=== PATIENT | female | born 2000 | race African-American/Black ===

== ENCOUNTER 2020-01-18 12:38 | Emergency (ER) | payer OTHER ==
[~2020-01-18] VITALS: Ht 157.5 cm; Wt 57.6 kg
[2020-01-18 12:40] VITALS: BP 111/64
--- NOTE | 2020-01-18 13:05 | NUR ---
ED Nurse Note: Pt. AAOx4. ambulatory. Pt walked in from home c/o fatigue, sore throat, chills, dizziness, and poor PO intake since last night around 0200. Pt denies n/v/d.
[2020-01-18] MEDS ORDERED: Acetaminophen 500mg (ES) tab ORAL ONE (13:15)
[2020-01-18] MEDS ORDERED: dexAMETHasone 10mg/ml Inj IV ONE (13:15)
--- NOTE | 2020-01-18 13:17 | Emergency Room Report ---
History of Present Illness General Chief Complaint: Flu Like Symptoms Source: Patient (Jono Sánchez MD) Present Illness HPI Disclaimer: Please note that this report is being documented using [employer] technology. This can lead to erroneous entry secondary to incorrect interpretation by the dictating instrument. HPI: 19-year-old female presents for evaluation of sore throat, fever and fatigue. Symptoms began yesterday. She noted sweats and chills, right-sided throat pain, right-sided neck pain, difficulty swallowing, fatigue and generalized body aches. She is from [place] and is visiting the [facility] for 1 week. She has been in large crowds recently. She denies cough, shortness of breath, chest pain, congestion, vomiting, diarrhea, rash. No known sick contacts. History of tonsillitis. No recent antibiotic use. PMH: Recurrent tonsillitis PSH: Reviewed Allergies: Reviewed Social Hx: Reviewed (Jono Sánchez MD) Allergies: Coded Allergies: No Known Allergies (Unverified , 01/18/20) COVID-19 Screening Contact w/high risk pt: No Recent Travel to affected area: No Experienced COVID-19 symptoms?: Yes COVID-19 symptoms experienced: Fever (T>100.4F or >38C), Flu-Like Symptoms COVID-19 Testing performed SAFETY TEACHER: No (Jono Sánchez MD) Nursing Documentation-PMH Past Medical History: No Stated History (Jono Sánchez MD) Review of Systems All Other Systems: negative except mentioned in HPI (Jono Sánchez MD) Physical Exam Vital Signs Date Time Temp Pulse Resp B/P (MAP) Pulse Ox O2 Delivery O2 Flow Rate FiO2 01/18/20 12:40 101.5 115 20 111/64 (80) 93 Room Air General: Awake and alert, febrile HEENT: NC/AT. EOMI. uvula is midline. The right tonsil is erythematous, edematous with purulent exudate. There is tender submandibular lymph nodes on the right side. Left tonsil appears erythematous but no edema no exudate. No tenderness over the submandibular nodes on the left side. Cardiovascular: Tachycardic. S1 and S2 normal. No murmur appreciated Resp: Normal work of breathing. No cough, wheezing or crackles appreciated Skin: Intact. No abrasions, laceration or rash over the exposed skin MSK: Normal tone and bulk. Moving all extremities. No obvious deformity. Neuro: Awake and alert. Mentating appropriately. (Jono Sánchez MD) Medical Decision Making Diagnostic Impression: Primary Impression: Viral syndrome Additional Impression: COVID-19 ruled out Ruled Out: Pulmonary embolism ER Course This is a otherwise healthy 19-year-old female presenting for evaluation of sore throat, fever and generally feeling unwell for 1 day. Concern for tonsillitis and pharyngitis she is febrile and mildly tachycardic though no distress and denies any respiratory symptoms at this time. Also concern for COVID-19 given her recent travel and being in large crowds. Her Centor score is 4 and we will treat with amoxicillin, dexamethasone, Tylenol. Chest x-ray was obtained as she was originally noted to be hypoxic at 93% on room air on initial triage. She remained tachycardic after receiving antibiotics, steroids and medications. Rapid COVID-19 test has returned negative. Concern for PE given her recent travel, hypoxia and tachycardia. Will obtain EKG, screening labs and sent for CTA of the chest. Patient will be signed out to oncoming provider pending these results and ultimate disposition. (Jono Sánchez MD) ER Course Please see above note. Patient signed out to me to review laboratory tests as well as CT angiogram. See results below. Patient improved with treatment here. COVID-19 19 rapid test negative. Leukocytosis. Some pyuria but contaminated specimen. Patient denies dysuria. Symptoms more centering around upper respiratory etiology. CTA excludes pulmonary embolus. Exact cause of low oxygen saturation unclear however no medical emergency apparent at this time. Patient cleared to fly home tomorrow. Discussed treatment plan and the importance of following up with her own physician. Patient stable for outpatient observation and treatment. Laboratory Tests Test 01/18/20 16:05 White Blood Count 16.7 K/UL (4.8-10.8) H Red Blood Count 4.23 M/UL (4.20-5.40) Hemoglobin 10.8 G/DL (12.0-16.0) L Hematocrit 34.7 % (37.0-47.0) L Mean Corpuscular Volume 82 FL (80-99) Mean Corpuscular Hemoglobin 25.6 PG (27.0-31.0) L Mean Corpuscular Hemoglobin Concent 31.2 G/DL (32.0-36.0) L Red Cell Distribution Width 14.5 % (11.6-14.8) Platelet Count 313 K/UL (150-450) Mean Platelet Volume 6.0 FL (6.5-10.1) L Neutrophils (%) (Auto) % (45.0-75.0) Lymphocytes (%) (Auto) % (20.0-45.0) Monocytes (%) (Auto) % (1.0-10.0) Eosinophils (%) (Auto) % (0.0-3.0) Basophils (%) (Auto) % (0.0-2.0) Differential Total Cells Counted 100 Neutrophils % (Manual) 88 % (45-75) H Lymphocytes % (Manual) 10 % (20-45) L Monocytes % (Manual) 2 % (1-10) Eosinophils % (Manual) 0 % (0-3) Basophils % (Manual) 0 % (0-2) Band Neutrophils 0 % (0-8) Platelet Estimate Adequate Platelet Morphology Normal Hypochromasia 1+ Anisocytosis 1+ Urine Color Frieda Urine Appearance Slightly cloudy Urine pH 6 (4.5-8.0) Urine Specific [place] 1.025 (1.005-1.035) Urine Protein 2+ (NEGATIVE) H Urine Glucose (UA) Negative (NEGATIVE) Urine Ketones 4+ (NEGATIVE) H Urine Blood 1+ (NEGATIVE) H Urine Nitrite Negative (NEGATIVE) Urine Bilirubin Negative (NEGATIVE) Urine Ictotest Negative (NEGATIVE) Urine Urobilinogen Normal MG/DL (0.0-1.0) Urine Leukocyte Esterase 1+ (NEGATIVE) H Urine RBC 0-2 /HPF (0 - 2) Urine WBC 10-15 /HPF (0 - 2) H Urine Squamous Epithelial Cells Moderate /LPF (NONE/OCC) H Urine Bacteria Moderate /HPF (NONE) H Urine Mucus Moderate /LPF (NONE/OCC) H Sodium Level 138 MMOL/L (136-145) Potassium Level 4.0 MMOL/L (3.5-5.1) Chloride Level 102 MMOL/L (98-107) Carbon Dioxide Level 27 MMOL/L (21-32) Anion Gap 9 mmol/L (5-15) Blood Urea Nitrogen 12 mg/dL (7-18) Creatinine 1.1 MG/DL (0.55-1.30) Estimated Glomerular Filtration Rate > 60 mL/min (>60) Glucose Level 119 MG/DL (74-106) H Calcium Level 8.5 MG/DL (8.5-10.1) Ferritin 9 NG/ML (8-388) Lactate Dehydrogenase 226 U/L (81-234) Troponin I 0.000 ng/mL (0.000-0.056) C-Reactive Protein, Quantitative 4.5 mg/dL (0.00-0.90) H Human Chorionic Gonadotropin, Qual Negative (NEGATIVE) Microbiology Date/Time Source Procedure Growth Status 01/18/20 13:25 Nasopharynx SARS-CoV-2 RdRp Gene Assay - Final Complete (Mina Leija MD) EKG Diagnostic Results EKG Time: 14:48 Rate: normal Rhythm: NSR ST Segments: no acute changes Other Impression Sinus rhythm, normal axis, normal intervals, no ST segment changes. Unremarkable EKG. (Jono Sánchez MD) Rhythm Strip Diag. Results Rhythm Strip Time: 14:48 EP Interpretation: yes Rate: 99 Rhythm: NSR, no PVC's, no ectopy (Jono Sánchez MD) Chest X-Ray Diagnostic Results Chest X-Ray Diagnostic Results : Chest X-Ray Ordered: Yes # of Views/Limited/Complete: 1 View Indication: Shortness of Breath EP Interpretation: Yes Interpretation: no consolidation, no effusion, no pneumothorax, no acute cardiopulmonary disease Impression: No acute disease Electronically Signed by: Electronically signed by Dr. Jono Sánchez (Jono Sánchez MD) CT/MRI/US Diagnostic Results CT/MRI/US Diagnostic Results : Imaging Test Ordered: CTA chest Impression 1. No pulmonary embolism. 2. No acute abnormality definitively identified to account for patient presentation. 3. Hepatic steatosis, correlate to exclude steatohepatitis. 4. Otherwise unremarkable study. (Mina Leija MD) Last Vital Signs Date Time Temp Pulse Resp B/P (MAP) Pulse Ox O2 Delivery O2 Flow Rate FiO2 01/18/20 12:40 101.5 115 20 111/64 93 Room Air (Jono Sánchez MD) Last Vital Signs Date Time Temp Pulse Resp B/P (MAP) Pulse Ox O2 Delivery O2 Flow Rate FiO2 01/18/20 20:15 100.1 85 20 106/65 98 Room Air Status: improved (Mina Leija MD) Disposition: HOME, SELF-CARE Condition: Improved Jono Sánchez MD Jan 18, 2020 13:17 Mina Leija MD Jan 18, 2020 20:04
[2020-01-18 14:22] VITALS: BP 98/55
[2020-01-18] MEDS ORDERED: Omnipaque 350 100ml vial INJ PRN (14:30)
--- NOTE | 2020-01-18 15:45 | NUR ---
ED Nurse Note: IV access established left AC 20 ga, blood and urine specimen sent down
--- NOTE | 2020-01-18 16:14 | Diagnostic Imaging Report ---
Indication: Shortness of breath Technique: One view of the chest Comparison: none Findings: Lungs and pleural spaces are clear. Heart size is normal. Impression: No acute process
[2020-01-18 16:20] LABS: HEMATOCRIT 34.7 % (37.0-47.0); HEMOGLOBIN 10.8 G/DL (12.0-16.0); MEAN CORPUSCULAR VOLUME 82 FL (80-99); PLATELET COUNT 313 K/UL (150-450); RED BLOOD COUNT 4.23 M/UL (4.20-5.40); RED CELL DISTRIBUTION WIDTH 14.5 % (11.6-14.8); WHITE BLOOD COUNT 16.7 K/UL (4.8-10.8)
[2020-01-18 16:33] LABS: ANION GAP 9 mmol/L (5-15); BLOOD UREA NITROGEN 12 mg/dL (7-18); CALCIUM 8.5 MG/DL (8.5-10.1); CARBON DIOXIDE 27 MMOL/L (21-32); CHLORIDE 102 MMOL/L (98-107); CREATININE 1.1 MG/DL (0.55-1.30); SODIUM 138 MMOL/L (136-145)
--- NOTE | 2020-01-18 17:03 | NUR ---
ED Nurse Note: patient was taken to CT
--- NOTE | 2020-01-18 17:10 | NUR ---
ED Nurse Note: patient is back from CT
[2020-01-18 17:35] LABS: APPEARANCE,URINE SLIGHTLY CLOUDY; BILIRUBIN, URINE NEGATIVE (NEGATIVE); COLOR,URINE AMBER; GLUCOSE, URINE (UA) NEGATIVE (NEGATIVE); KETONES,URINE 4+ (NEGATIVE); LEUKOCYTE ESTERASE ,URINE 1+ (NEGATIVE); NITRITE,URINE NEGATIVE (NEGATIVE); PH,URINE 6 (4.5-8.0); PROTEIN,URINE 2+ (NEGATIVE); UROBILINOGEN,URINE NORMAL MG/DL (0.0-1.0)
--- NOTE | 2020-01-18 17:35 | Diagnostic Imaging Report ---
EXAM: CT Angiography Chest With Intravenous Contrast CLINICAL HISTORY: PE TECHNIQUE: Axial computed tomographic angiography images of the chest with intravenous contrast. CTDI is 23 mGy and DLP is 114 mGy-cm. One or more of the following dose reduction techniques were used: automated exposure control, adjustment of the mA and/or kV according to patient size, use of iterative reconstruction technique. MIP reconstructed images were created and reviewed. Coronal and sagittal reformatted images were created and reviewed. COMPARISON: No relevant prior studies available. FINDINGS: Pulmonary arteries: No pulmonary embolism. Aorta: No acute findings. No thoracic aortic aneurysm. Lungs: Unremarkable. No mass. No consolidation. Pleural space: Unremarkable. No significant effusion. No pneumothorax. Heart: Unremarkable. No cardiomegaly. No significant pericardial effusion. No evidence of RV dysfunction. Bones/joints: No acute fracture. No dislocation. Soft tissues: Unremarkable. Lymph nodes: Unremarkable. No enlarged lymph nodes. Liver: Hepatic steatosis, correlate to exclude steatohepatitis. IMPRESSION: 1. No pulmonary embolism. 2. No acute abnormality definitively identified to account for patient presentation. 3. Hepatic steatosis, correlate to exclude steatohepatitis. 4. Otherwise unremarkable study.
--- NOTE | 2020-01-18 19:00 | NUR ---
ED Nurse Note: Pt is resting in bed, NAD. Will continue to monitor.
[2020-01-18 20:15] VITALS: BP 106/65
--- NOTE | 2020-01-18 20:15 | NUR ---
ER DISCHARGE NOTE: Patient is cleared to be discharged per ERMD, pt is aox4, on room air, with stable vital signs. pt was given dc and prescription instructions, pt was able to verbalize understanding, pt id band and iv site removed without complications. pt is able to ambulate with steady gait. pt took all belongings.
== END 2020-01-18 20:15 | disposition home or self-care (01) ==
LOC: EMR 13:29
DX: B34.9 Viral infection, unspecified (principal); D72.829 Elevated white blood cell count, unspecified
CPT/HCPCS: 36415; 71045; 71275; 80048; 81003; 82728; 83615; 84484; 84703; 85007; 85025; 86140; 87086; 93005; 96374; 99284; Q9967; U0002